=== PATIENT | male | born 1980 | race Two or more races ===

== ENCOUNTER 2019-12-10 11:00 | Inpatient (IN) ==
--- NOTE | 2019-12-10 11:26 | DR.EXTPAIN ---
HPI Time seen Time Seen by Provider: 12/10/19 11:17 HPI Comment HPI Comment: Patient with fever 1 week ago now cough for 4 days and dyspnea. Had covid19 test but results unknown. COVID-19 Coronavirus risk:travel/contact w/high risk person: Yes Has patient experienced Coronavirus symptoms: Yes Coronavirus symptoms experienced: Fever, Coughing and Shortness of Breath Nurses notes reviewed Nurses Notes Review: Yes Source History Provided: Patient Mode of arrival Mode of Arrival: Ambulatory Context History of: None Associated signs and symptoms Associated Signs and Symptoms: None, Fever, Cough and Shortness of Breath PMH PMH Past Medical History: Yes Past Medical History: Diabetes Social History Does patient currently use any type of tobacco product: No Have you used tobacco products in the last 12 months: No Alcohol Use: None Do you use any recreational Drugs:: No Lives With: Family Lives Where: Home Travel Risk Coronavirus risk:travel/contact w/high risk person: Yes Coronavirus symptoms experienced: Fever, Coughing and Shortness of Breath Infectious screening In the last 2 months have you had wt loss of >10#?: NO ROS Review of Systems Constitutional: Fever Eyes: No Symptoms Reported ENTM: No Symptoms Reported Respiratoy: Non-Productive Cough and Short of Breath Cardiovascular: No Symptoms Reported Gastrointestinal/Abdominal: No Symptoms Reported Genitourinary: No Symptoms Reported Neurological: No Symptoms Reported Musculoskeletal: No Symptoms Reported Integumentary: No Symptoms Reported Hematologic/Lymphatic: No Symptoms Reported Endocrine: No Symptoms Reported Psychiatric: No Symptoms Reported All Other Systems: Reviewed and Negative PE Vital Signs Vitals: Temperature 99.9 F Pulse Rate [Left Brachial] 99 Pulse Rate 112 Respiratory Rate 16 Blood Pressure [Left Arm] 117/74 Blood Pressure 124/78 O2 Sat by Pulse Oximetry 96 General Limitations: No Limitations General Appearance: Alert and In No Apparent Distress Head Head Exam: Normal Inspection and Atraumatic Eyes Eye exam: Normal Appearance and EOMI ENT ENT Exam: Normal Exam and Normal Oropharynx Neck Neck Exam: Normal Inspection, Full ROM and Trachea Midline Chest Chest Inspection: Normal Inspection Respiratory Respiratory Exam: Normal Lung Sounds Bilat; negative Accessory Muscle Use Respiratory Exam: Bilateral: Clear to Auscultation Cardiovascular Cardiovascular Exam: Tachycardia Abdominal Exam Abdominal Exam: Normal Inspection Extremities Extremities Exam: Normal Inspection and Full ROM Upper Extremities Shoulder Exam: Normal Inspection and Full ROM Arm Exam: Normal Inspection Elbow Exam: Normal Inspection Forearm Exam: Normal Inspection Hand Exam: Normal Inspection Neuromotor Exam: Normal Exam Lower Extremities Hip/Pelvis Exam: Normal Inspection and Full ROM Upper Leg Exam: Normal Inspection and Full ROM Knee Exam: Normal Inspection and Full ROM Lower Leg Exam: Normal Inspection and Full ROM Ankle Exam: Normal Inspection and Full ROM Back Back Exam: Normal Inspection and Full ROM Neurological Neurological Exam: Alert, Oriented X3 and CN II-XII Intact Skin Skin Exam: Normal Color ROR Labs Reviewed Result Diagrams: 12/10/19 11:15 12/10/19 11:15 Laboratory: WBC 5.4 X10^3/uL (3.6-10.0) 12/10/19 11:15 RBC 5.13 X10^6/uL (4.7-6.0) 12/10/19 11:15 Hgb 14.7 g/dL (13.5-18.0) 12/10/19 11:15 Hct 43.8 % (42.0-54.0) 12/10/19 11:15 MCV 85.5 fL (80.0-100.0) 12/10/19 11:15 MCH 28.7 pg (27.0-34.0) 12/10/19 11:15 MCHC 33.6 g/dL (33.0-35.0) 12/10/19 11:15 RDW 12.7 % (11.6-16.5) 12/10/19 11:15 Plt Count 189 X10^3/uL (150.0-450.0) 12/10/19 11:15 MPV 8.1 fL (7.4-11.0) 12/10/19 11:15 Neut % (Auto) 84.7 % (42.0-75.0) H 12/10/19 11:15 Lymph % (Auto) 12.1 % (21.0-51.0) L 12/10/19 11:15 Mckinley % (Auto) 2.9 % (0.0-13.0) 12/10/19 11:15 Eos % (Auto) 0.1 % (0.9-2.9) L 12/10/19 11:15 Baso % (Auto) 0.2 % (0.2-1.0) 12/10/19 11:15 Neut # (Auto) 4.5 x10^3/uL (2.2-4.8) 12/10/19 11:15 Lymph # (Auto) 0.6 X10^3/uL (1.3-2.9) L 12/10/19 11:15 Mckinley # (Auto) 0.2 x10^3/uL (0.3-0.8) L 12/10/19 11:15 Eos # (Auto) 0.0 x10^3/uL (0.0-0.2) 12/10/19 11:15 Baso # (Auto) 0.0 X10^3/uL (0.0-0.1) 12/10/19 11:15 Absolute Nucleated RBC 0.0 /100WBC 12/10/19 11:15 Sample Site Rr 12/10/19 11:40 ABG pH 7.460 (7.35-7.45) H 12/10/19 11:40 ABG pCO2 44.0 mmHg (35.0-45.0) 12/10/19 11:40 ABG pO2 61.0 mmHg (80.0-100.0) L 12/10/19 11:40 ABG HCO3 31.3 mmol/L (22-26) H* 12/10/19 11:40 ABG O2 Saturation 92.0 % (90-100) 12/10/19 11:40 ABG Base Excess 6.6 mmol/L (-2.0-2.0) H 12/10/19 11:40 Beto Test Pos 12/10/19 11:40 A-a Gradient 34.0 mmHg 12/10/19 11:40 FiO2 21.0 12/10/19 11:40 Blood Gas Comments Gema well cb 12/10/19 11:40 Sodium 132 mmol/L (136-145) L 12/10/19 11:15 Corrected Sodium 136 mmol/L (136-145) 12/10/19 11:15 Potassium 3.7 mmol/L (3.5-5.1) 12/10/19 11:15 Chloride 95 mmol/L (98-107) L 12/10/19 11:15 Carbon Dioxide 27.6 mmol/L (21-32) 12/10/19 11:15 BUN 7 mg/dL (7-18) 12/10/19 11:15 Creatinine 0.71 mg/dL (0.70-1.30) 12/10/19 11:15 Est GFR (MDRD) Af Amer > 60 (>60) 12/10/19 11:15 Est GFR (MDRD) Non-Af > 60 (>60) 12/10/19 11:15 Glucose 259 mg/dL (65-99) H 12/10/19 11:15 Calcium 8.5 mg/dL (8.5-10.1) 12/10/19 11:15 Corrected Calcium 9.3 mg/dL (8.5-10.1) 12/10/19 11:15 Ferritin 763 ng/mL (26-388) H 12/10/19 11:15 Total Bilirubin 0.40 mg/dL (0.2-1.0) 12/10/19 11:15 AST 38 Units/L (15-37) H 12/10/19 11:15 ALT 48 Units/L (12-78) 12/10/19 11:15 Alkaline Phosphatase 74 Units/L (46-116) 12/10/19 11:15 C-Reactive Protein 150.60 mg/L (0-3.0) H 12/10/19 11:15 Total Protein 7.3 g/dL (6.4-8.2) 12/10/19 11:15 Albumin 3.0 g/dL (3.4-5.0) L 12/10/19 11:15 Globulin 4.3 g/dL (2.5-4.5) 12/10/19 11:15 Albumin/Globulin Ratio 0.7 Ratio (1.1-2.1) L 12/10/19 11:15 SARS-CoV-2 (PCR) Positive (NEGATIVE) A 12/10/19 12:46 Opioid Opioid Risk Tool Total: 0 Total Score Risk Category: Low Risk Copyright: [employer] predicting aberrant behaviors Diagnosis Discharge Problem: COVID-19, Hypoxia
[2019-12-10] MEDS ORDERED: DUONEB 0.5 MG/3 MG (3 mL) NEB ONE ×3 (11:31→11:32)
[2019-12-10 11:32] VITALS: BMI 28.3
[2019-12-10] MEDS ORDERED: OFIRMEV IV 1000 MG VIAL 1,000 MG/100 ML VIAL IV ONE (11:35)
[2019-12-10] MEDS ORDERED: NS 1000 ML 1,000 ML ONE (11:39)
[2019-12-10 11:42] LABS: BASOPHILS % (AUTO) 0.2 % (0.2-1.0); EOSINOPHILS % (AUTO) 0.1 % (0.9-2.9); HEMATOCRIT 43.8 % (42.0-54.0); HEMOGLOBIN 14.7 g/dL (13.5-18.0); LYMPHOCYTES # (AUTO) 0.6 X10^3/uL (1.3-2.9); LYMPHOCYTES % (AUTO) 12.1 % (21.0-51.0); MEAN CORPUSCULAR HEMOGLOBIN 28.7 pg (27.0-34.0); MEAN CORPUSCULAR HGB CONC 33.6 g/dL (33.0-35.0); MEAN CORPUSCULAR VOLUME 85.5 fL (80.0-100.0); MEAN PLATELET VOLUME 8.1 fL (7.4-11.0); MONOCYTES # (AUTO) 0.2 x10^3/uL (0.3-0.8); MONOCYTES % (AUTO) 2.9 % (0.0-13.0); NEUTROPHILS # (AUTO) 4.5 x10^3/uL (2.2-4.8); NEUTROPHILS % (AUTO) 84.7 % (42.0-75.0); PLATELET COUNT 189 X10^3/uL (150.0-450.0); RED BLOOD COUNT 5.13 X10^6/uL (4.7-6.0); RED CELL DISTRIBUTION WIDTH 12.7 % (11.6-16.5); WHITE BLOOD COUNT 5.4 X10^3/uL (3.6-10.0)
[2019-12-10 11:45] LABS: ABG BASE EXCESS 6.6 mmol/L (-2.0-2.0)
[2019-12-10 11:46] LABS: ABG ALLEN TEST POS; ABG HCO3 31.3 mmol/L (22-26)
[2019-12-10 11:52] LABS: ALANINE AMINOTRANSFERASE 48 Units/L (12-78); ALKALINE PHOSPHATASE 74 Units/L (46-116); ASPARTATE AMINO TRANSFERASE 38 Units/L (15-37); BLOOD UREA NITROGEN 7 mg/dL (7-18); CALCIUM 8.5 mg/dL (8.5-10.1); CARBON DIOXIDE 27.6 mmol/L (21-32); CHLORIDE 95 mmol/L (98-107); COR CA(FOR HYPOALB) 9.3 mg/dL (8.5-10.1); COR NA(FOR HYPERGLY) 136 mmol/L (136-145); CREATININE 0.71 mg/dL (0.70-1.30); SODIUM 132 mmol/L (136-145); TOTAL PROTEIN 7.3 g/dL (6.4-8.2); eGFR NON BLACK RACES > 60 (>60)
--- NOTE | 2019-12-10 11:52 | RAD ---
HISTORYCOUGH, FEVERSTUDYPortable AP chestCOMPARISONNoneFINDINGSThere is limited inspiration of grossly clear lungs. The heart and mediastinum are unremarkable. There is no edema or effusion or congestion.IMPRESSIONNo evidence for acute cardiopulmonary diseaseElectronically signed by: BRET IBANEZ (Dec 10, 2019 11:51:16)
[2019-12-10] MEDS ORDERED: NS 1000 ML 1,000 ML IV ONE (11:53)
[2019-12-10] MEDS ORDERED: PROVENTIL NEB TX 0.083% 2.5MG/ 3ML NEB PRN (15:58)
[2019-12-10] MEDS ORDERED: ASCORBIC ACID INJ MULTI-DOSE VIAL IM SCH (16:29)
[2019-12-10] MEDS: PROVENTIL NEB TX 0.083% 2.5MG/ 3ML NEB PRN ×2 (17:10→20:45)
[2019-12-10] MEDS ORDERED: HumuLIN R SUBCUT PRN (17:24)
[2019-12-10] MEDS ORDERED: CORTEF ONE (17:36)
[2019-12-10] MEDS: PLAQUENIL PO SCH ×2 (17:40→20:47)
[2019-12-10] MEDS: NS 1000 ML 1,000 ML IV SCH (17:40)
[2019-12-10] MEDS: CORTEF PO SCH ×2 (17:40→17:41)
[2019-12-10] MEDS: ZINC SULFATE PO SCH ×2 (17:41→20:46)
[2019-12-10] MEDS: LOVENOX INJ 30 MG SYR SC SCH ×2 (17:42→20:47)
[2019-12-10] MEDS: THIAMINE HCL INJ IVP SCH ×2 (17:42→20:46)
[2019-12-10] MEDS ORDERED: REMDESIVIR (INVESTIGATIONAL DRUG GS-5734) 200 MG in NS 250 ML IV 250 ML IV ONE (19:04)
[2019-12-10] MEDS ORDERED: TYLENOL 500 MG TAB EXTRA STRENGTH PO PRN (19:55)
[2019-12-10] MEDS ORDERED: MOTRIN TAB 600 MG PO PRN (19:56)
[2019-12-10] MEDS: ASCORBIC ACID INJ MULTI-DOSE VIAL 1,500 MG in NS 100 ML IV 100 ML IV SCH (20:46)
[2019-12-10] MEDS: DECADRON TAB PO SCH (20:47)
[2019-12-10] MEDS: GLUCOPHAGE XR 24-HR PO SCH (20:51)
[2019-12-10] MEDS: ACTOS PO SCH (20:52)
[2019-12-10] MEDS: SNACK - Diabetic Appropriate PO SCH (21:00)
[2019-12-10] MEDS: HumuLIN R SUBCUT PRN (22:05)
[2019-12-11] MEDS: ASCORBIC ACID INJ MULTI-DOSE VIAL 1,500 MG in NS 100 ML IV 100 ML IV SCH ×4 (03:45→21:52)
[2019-12-11 04:38] LABS: BASOPHILS % (AUTO) 0.1 % (0.2-1.0); HEMATOCRIT 42.1 % (42.0-54.0); HEMOGLOBIN 14.1 g/dL (13.5-18.0); LYMPHOCYTES # (AUTO) 0.5 X10^3/uL (1.3-2.9); LYMPHOCYTES % (AUTO) 9.6 % (21.0-51.0); MEAN CORPUSCULAR HEMOGLOBIN 29.1 pg (27.0-34.0); MEAN CORPUSCULAR HGB CONC 33.5 g/dL (33.0-35.0); MEAN CORPUSCULAR VOLUME 86.8 fL (80.0-100.0); MEAN PLATELET VOLUME 8.3 fL (7.4-11.0); MONOCYTES # (AUTO) 0.1 x10^3/uL (0.3-0.8); NEUTROPHILS # (AUTO) 4.5 x10^3/uL (2.2-4.8); NEUTROPHILS % (AUTO) 88.3 % (42.0-75.0); PLATELET COUNT 244 X10^3/uL (150.0-450.0); RED BLOOD COUNT 4.85 X10^6/uL (4.7-6.0); RED CELL DISTRIBUTION WIDTH 13.2 % (11.6-16.5); WHITE BLOOD COUNT 5.1 X10^3/uL (3.6-10.0)
[2019-12-11 04:51] LABS: ALANINE AMINOTRANSFERASE 49 Units/L (12-78); ALBUMIN 2.7 g/dL (3.4-5.0); ALKALINE PHOSPHATASE 74 Units/L (46-116); ASPARTATE AMINO TRANSFERASE 38 Units/L (15-37); BLOOD UREA NITROGEN 9 mg/dL (7-18); CALCIUM 8.8 mg/dL (8.5-10.1); CARBON DIOXIDE 29.4 mmol/L (21-32); CHLORIDE 101 mmol/L (98-107); COR CA(FOR HYPOALB) 9.8 mg/dL (8.5-10.1); COR NA(FOR HYPERGLY) 142 mmol/L (136-145); CREATININE 0.72 mg/dL (0.70-1.30); SODIUM 138 mmol/L (136-145); TOTAL PROTEIN 7.2 g/dL (6.4-8.2); eGFR NON BLACK RACES > 60 (>60)
[2019-12-11] MEDS: ACTOS PO SCH (08:35)
[2019-12-11] MEDS: DECADRON TAB PO SCH (08:36)
[2019-12-11] MEDS: PLAQUENIL PO SCH ×2 (08:37→21:00)
[2019-12-11] MEDS: GLUCOPHAGE XR 24-HR PO SCH ×2 (08:37→21:52)
[2019-12-11] MEDS: LOVENOX INJ 30 MG SYR SC SCH ×2 (08:37→21:52)
[2019-12-11] MEDS: ZINC SULFATE PO SCH ×2 (08:38→21:54)
[2019-12-11] MEDS: THIAMINE HCL INJ IVP SCH ×2 (08:38→21:53)
[2019-12-11] MEDS ORDERED: VITAMIN D (1.25MG) PO SCH (09:00)
[2019-12-11] MEDS ORDERED: VITAMIN A PO SCH (09:00)
[2019-12-11] MEDS: PROVENTIL NEB TX 0.083% 2.5MG/ 3ML NEB PRN ×4 (09:20→17:35)
[2019-12-11] MEDS: REMDESIVIR (INVESTIGATIONAL DRUG GS-5734) 100 MG in NS 250 ML IV 250 ML IV SCH (09:48)
[2019-12-11] MEDS: INVOKANA PO SCH (09:49)
[2019-12-11] MEDS ORDERED: GLUCOPHAGE XR 24-HR PO SCH (10:00)
[2019-12-11] MEDS: HumuLIN R SUBCUT PRN ×2 (11:40→16:24)
[2019-12-11] MEDS: NS 1000 ML 1,000 ML IV SCH (16:36)
[2019-12-12] MEDS: PROVENTIL NEB TX 0.083% 2.5MG/ 3ML NEB PRN ×2 (00:10→11:15)
[2019-12-12] MEDS: SNACK - Diabetic Appropriate PO SCH (01:11)
[2019-12-12] MEDS ORDERED: NS 100 ML IV 100 ML IV ONE (03:52)
[2019-12-12] MEDS: ASCORBIC ACID INJ MULTI-DOSE VIAL 1,500 MG in NS 100 ML IV 100 ML IV SCH ×2 (04:00→09:15)
[2019-12-12 05:01] LABS: BASOPHILS % (AUTO) 0.2 % (0.2-1.0); HEMATOCRIT 40.3 % (42.0-54.0); HEMOGLOBIN 13.6 g/dL (13.5-18.0); LYMPHOCYTES # (AUTO) 0.7 X10^3/uL (1.3-2.9); LYMPHOCYTES % (AUTO) 11.8 % (21.0-51.0); MEAN CORPUSCULAR HEMOGLOBIN 29.1 pg (27.0-34.0); MEAN CORPUSCULAR HGB CONC 33.6 g/dL (33.0-35.0); MEAN CORPUSCULAR VOLUME 86.7 fL (80.0-100.0); MONOCYTES # (AUTO) 0.4 x10^3/uL (0.3-0.8); NEUTROPHILS # (AUTO) 4.7 x10^3/uL (2.2-4.8); PLATELET COUNT 327 X10^3/uL (150.0-450.0); RED BLOOD COUNT 4.65 X10^6/uL (4.7-6.0); RED CELL DISTRIBUTION WIDTH 12.9 % (11.6-16.5); WHITE BLOOD COUNT 5.8 X10^3/uL (3.6-10.0)
[2019-12-12 05:19] LABS: ALANINE AMINOTRANSFERASE 50 Units/L (12-78); ALBUMIN 2.6 g/dL (3.4-5.0); ALKALINE PHOSPHATASE 74 Units/L (46-116); ASPARTATE AMINO TRANSFERASE 27 Units/L (15-37); BLOOD UREA NITROGEN 23 mg/dL (7-18); CALCIUM 8.9 mg/dL (8.5-10.1); CARBON DIOXIDE 18.4 mmol/L (21-32); CHLORIDE 103 mmol/L (98-107); COR NA(FOR HYPERGLY) 141 mmol/L (136-145); CREATININE 0.79 mg/dL (0.70-1.30); SODIUM 139 mmol/L (136-145); TOTAL PROTEIN 6.8 g/dL (6.4-8.2); eGFR NON BLACK RACES > 60 (>60)
[2019-12-12] MEDS ORDERED: VITAMIN D3 25 mcg (1,000 UNITS) PO SCH (09:00)
[2019-12-12] MEDS ORDERED: VITAMIN A PO SCH (09:00)
[2019-12-12] MEDS: INVOKANA PO SCH (09:05)
[2019-12-12] MEDS: PLAQUENIL PO SCH (09:11)
[2019-12-12] MEDS: DECADRON TAB PO SCH (09:11)
[2019-12-12] MEDS: ACTOS PO SCH (09:11)
[2019-12-12] MEDS: ZINC SULFATE PO SCH (09:12)
[2019-12-12] MEDS: THIAMINE HCL INJ IVP SCH (09:12)
[2019-12-12] MEDS: LOVENOX INJ 30 MG SYR SC SCH (09:13)
[2019-12-12] MEDS: GLUCOPHAGE XR 24-HR PO SCH (09:16)
[2019-12-12] MEDS: REMDESIVIR (INVESTIGATIONAL DRUG GS-5734) 100 MG in NS 250 ML IV 250 ML IV SCH (09:16)
[2019-12-12 14:38] VITALS: BP 99/63
== END 2019-12-12 14:40 | disposition home or self-care (01) | DRG 179 ==
LOC: ER 11:07 → ICU 14:21
PROVIDERS: ADMIT Obstetrics & Gynecology Obstetrics; ATTEND Obstetrics & Gynecology Obstetrics
DX: U07.1 COVID-19; R50.9 Fever, unspecified; Z79.899 Other long term (current) drug therapy; R06.02 Shortness of breath; E11.65 Type 2 diabetes mellitus with hyperglycemia; R09.02 Hypoxemia
CPT/HCPCS: 36415; 36600; 71010; 71045; 80053; 82728; 82803; 84484; 85025; 86140; 87635; 94640; 96365; 96367; 96374; 99284; A4222; J0131; J1650; J1815; J3411; J7030; J7050; J7613; J7620; J8540